=== PATIENT | male | born 1975 | race Hispanic/Latino ===

== ENCOUNTER 2021-09-08 07:15 | Emergency (ER) | payer OTHER ==
[2021-09-08] MEDS ORDERED: SODIUM CHLORIDE IRRI 500 ML 1,000 ML IR ONE (07:19)
[2021-09-08] MEDS ORDERED: LIDOCAINE 1%/EPINEPHRINE 1:100,000 VIAL (20 ML) INFILTRATI ONE ×2 (07:19)
[2021-09-08] MEDS ORDERED: SODIUM CHLORIDE 0.9% IRR 500 ML BOTTLE IR ONE (07:19)
[2021-09-08] MEDS ORDERED: TETANUS,DIPH,PERTUSS(ACELL) VACCINE 0.5 ML SYRINGE IM ONE (07:19)
[2021-09-08] MEDS ORDERED: LIDOCAINE (1%) 10 MG/1 ML VIAL 20 ML MDV ONE (07:38)
[2021-09-08] MEDS ORDERED: LIDOCAINE (1%) 10 MG/1 ML VIAL 20 ML MDV INFILTRATI ONE (07:45)
[2021-09-08] MEDS ORDERED: LACTULOSE 20 GM/30 ML ORAL LIQD PO ONE (08:53)
[2021-09-08] MEDS ORDERED: IBUPROFEN 800 MG TAB PO ONE (08:53)
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
--- NOTE | 2021-09-08 10:26 | Cat Scan Report ---
CT BRAIN: 09/08/2021 INDICATION / CLINICAL INFORMATION: Head injury with loss of consciousness. COMPARISON: None available. FINDINGS: BRAIN/INTRACRANIAL STRUCTURES: Unenhanced CT images of the brain demonstrate no evidence of acute int racranial abnormality. Ventricles and sulci are normal in size and shape for a patient of this age. There is no evidence of hemorrhage or mass. There are no abnormal extra-axial fluid collections. There is a sutured laceration in the high right frontal scalp, associated with soft tissue edema and scalp hematoma formation. Subcutaneous air densities are present, compatible with acute laceration. EXTRACRANIAL STRUCTURES: Unremarkable. IMPRESSION: No acute intracranial abnormality. Scalp injury noted. All CT scans at this location are performed using dose reduction to ALARA by means of automated expos ure control. Signer Name: Winston Nguyen MD Signed: 09/08/2021 10:22 AM Workstation Name: [id number]
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
[2021-09-08 11:17] VITALS: BP 126/78
== END 2021-09-08 11:22 | disposition home or self-care (01) ==
LOC: ED 07:15
DX: S01.01XA Laceration without foreign body of scalp, initial encounter (principal); S01.511A Laceration without foreign body of lip, initial encounter; J44.9 Chronic obstructive pulmonary disease, unspecified; Z87.891 Personal history of nicotine dependence; Z79.899 Other long term (current) drug therapy; W22.8XXA Striking against or struck by other objects, initial encounter; Y93.89 Activity, other specified; Y92.89 Other specified places as the place of occurrence of the external cause; Y99.8 Other external cause status
CPT/HCPCS: 12013; 12034; 70450; 70486; 72125; 73130; 90471; 90715; 99284; J3490